=== PATIENT | female | born 1970 | race Caucasian/White ===

== ENCOUNTER 2016-10-01 17:33 | Emergency (ER) | payer MEDICAID ==
[~2016-10-01] VITALS: Ht 157.5 cm; Wt 66.5 kg
[~2016-10-01 17:33] MED LIST: ASPI-781 PO; ATOR10TA65 PO; CLOP75TA27 PO; LANT3I SC; METF500T4 PO
[2016-10-01 17:39] VITALS: Ht 157.5 cm; Wt 66.5 kg
[2016-10-01] MEDS ORDERED: NITROGLYCERIN 2% 1 GM OINT PKT TD STA (17:48)
[2016-10-01] MEDS ORDERED: ASPIRIN 81 MG TAB PO STA (17:48)
[2016-10-01] MEDS ORDERED: NITROGLYCERIN (SL) 0.4 MG TAB SL PRN (18:00)
[2016-10-01 18:07] LABS: BASOPHILS % 0.2 % (0.0-2.0); EOSINOPHILS % 0.3 % (0.0-7.0); HEMATOCRIT 42.4 % (37.0-47.0); HEMOGLOBIN 14.6 g/dl (12.0-16.0); LYMPHOCYTES # 4.3 10^3/ul (0.8-2.9); LYMPHOCYTES % 44.7 % (15.0-51.0); MEAN CORPUSCULAR HEMOGLOBIN 30.6 pg (29.0-33.0); MEAN CORPUSCULAR HGB CONC 34.4 g/dl (32.0-37.0); MEAN CORPUSCULAR VOLUME 88.9 fl (82.0-101.0); MEAN PLATELET VOLUME 11.2 fl (7.4-10.4); MONOCYTE # 0.6 10^3/ul (0.3-0.9); MONOCYTES % 6.5 % (0.0-11.0); NEUTROPHIL # 4.7 10^3/ul (1.6-7.5); NEUTROPHILS % 48.1 % (39.0-77.0); PLATELET COUNT 298 10^3/UL (140-415); RED BLOOD COUNT 4.77 10^6/ul (4.20-5.40); RED CELL DISTRIBUTION WIDTH 11.6 % (11.5-14.5); WHITE BLOOD COUNT 9.7 10^3/ul (4.8-10.8)
[2016-10-01 18:23] LABS: INR 0.9; PARTIAL THROMBOPLASTIN TIME 22.9 Sec (25.0-35.0); PROTIME 12.1 Sec (12.2-14.2); PT RATIO 0.9
[2016-10-01 18:24] LABS: CALCIUM 10.5 mg/dl (8.4-10.2); CREATININE 0.5 mg/dl (0.44-1.00)
[2016-10-01 18:36] LABS: TROPONIN-I 0.013 ng/ml (0.00-0.12)
--- NOTE | 2016-10-01 19:25 | RADRPT ---
PROCEDURE: XR Chest. CLINICAL INDICATION: Chest pain. TECHNIQUE: Anterior chest x-ray. COMPARISON: 07/09/2015 FINDINGS: The lungs are clear. No pleural effusion identified. There is no evidence of pneumothorax. The cardiomediastinal silhouette is unremarkable. The soft tissues are normal. Osseous structures are unremarkable. IMPRESSION: 1. No acute disease is seen in the chest. RPTAT: HLDM .Ankit Carlin MD, MD Date Time Electronically viewed and signed by .Ankit Carlin MD, MD on 10/01/2016 19:25 .M/
[2016-10-01] MEDS ORDERED: INSULIN LISPRO 100 UNIT/ML VIAL SC STA (19:39)
--- NOTE | 2016-10-01 19:53 | ERA ---
ER Documentation Chief Complaint Date/Time DATE: 10/01/16 TIME: 19:51 Chief Complaint PRESSURE LIKE PAIN AT THE LEFT CHEST RADIATES LEFT ARM HPI Patient is a 46-year-old female with coronary artery disease, hypertension, and diabetes who presents with chest pain. She feels a chest pressure that started yesterday in the midsternal area. She has anxiety when the chest pain comes on. It comes and goes. She has had no treatment as of yet. Upon review of old medical records the patient one previous visit to the ER in 2015 and at that time was admitted with an NSTEMI. She does not know the name of her primary doctor. ROS All systems reviewed and are negative except as per history of present illness. Medications Home Meds Active Scripts Metformin Hcl* (Metformin Hcl*) 500 Mg Tablet, 500 MG PO BID, #30 TAB start taking only from 07/13/2015 Prov:GERARDO MITCHELL NP 07/12/15 Clopidogrel Bisulfate (Clopidogrel) 75 Mg Tab, 75 MG PO DAILY for 30 Days, TAB Prov:GERARDO MITCHELL NP 07/12/15 Atorvastatin Calcium (Atorvastatin Calcium) 10 Mg Tab, 40 MG PO HS for 30 Days, TAB Prov:GERARDO MITCHELL NP 07/12/15 Aspirin* (Ecotrin*) 325 Mg Tabec, 325 MG PO DAILY for 30 Days Prov:GERARDO MITCHELL NP 07/12/15 Reported Medications Insulin Glargine* (Lantus*) 100 Unit/Ml Soln, 20 UNIT SC BID, #1 VIAL 07/09/15 Allergies Allergies: Coded Allergies: No Known Allergy (Unverified , 07/09/15) PMhx/Soc Positive for coronary disease, hypertension, and diabetes History of Surgery: No Anesthesia Reaction: No Hx Neurological Disorder: No Hx Respiratory Disorders: No Hx Cardiac Disorders: No Hx Psychiatric Problems: No Hx Miscellaneous Medical Probl: No Hx Alcohol Use: No Hx Substance Use: No Hx Tobacco Use: No Smoking Status: Never smoker FmHx Family History: No coronary disease Physical Exam Vitals Vital Signs Date Time Temp Pulse Resp B/P Pulse Ox O2 Delivery O2 Flow Rate FiO2 10/01/16 17:50 Nasal Cannula 2 10/01/16 17:39 98.4 85 19 136/81 99 Physical Exam Const: [] Head: Atraumatic Eyes: Normal Conjunctiva ENT: Normal External Ears, Nose and Mouth. Neck: Full range of motion..~ No meningismus. Resp: Clear to auscultation bilaterally Cardio: Regular rate and rhythm, no murmurs Abd: Soft, non tender, non distended. Normal bowel sounds Skin: No petechiae or rashes Back: No midline or flank tenderness Ext: No cyanosis, or edema Neur: Awake and alert Psych: Normal Mood and Affect Result Diagram: 10/01/160 10/01/16 175 Results 24 hrs Laboratory Tests Test 10/01/16 17:50 White Blood Count 9.710^3/ul Red Blood Count 4.7710^6/ul Hemoglobin 14.6g/dl Hematocrit 42.4% Mean Corpuscular Volume 88.9fl Mean Corpuscular Hemoglobin 30.6pg Mean Corpuscular Hemoglobin Concent 34.4g/dl Red Cell Distribution Width 11.6% Platelet Count 63389^3/UL Mean Platelet Volume 11.2fl Neutrophils % 48.1% Lymphocytes % 44.7% Monocytes % 6.5% Eosinophils % 0.3% Basophils % 0.2% Nucleated Red Blood Cells % 0.0/100WBC Neutrophils # 4.710^3/ul Lymphocytes # 4.310^3/ul Monocytes # 0.610^3/ul Eosinophils # 0.010^3/ul Basophils # 0.010^3/ul Nucleated Red Blood Cells # 0.010^3/ul Prothrombin Time 12.1Sec Prothrombin Time Ratio 0.9 INR International Normalized Ratio 0.90 Activated Partial Thromboplast Time 22.9Sec Sodium Level 140mmol/L Potassium Level 4.0mmol/L Chloride Level 99mmol/L Carbon Dioxide Level 22mmol/L Anion Gap 23 Blood Urea Nitrogen 13mg/dl Creatinine 0.50mg/dl Glucose Level 495mg/dl Calcium Level 10.5mg/dl Troponin I 0.013ng/ml Current Medications Medications (Trade) Dose Ordered Sig/Helen Route PRN Reason Start Time Stop Time Status Last Admin Dose Admin Aspirin (Aspirin) 162 mg ONCE STAT PO 10/01/16 17:48 10/01/16 17:49 DC 10/01/16 18:18 Nitroglycerin (Nitroglycerin 2% Oint) 1 inch ONCE STAT TD 10/01/16 17:48 10/01/16 17:49 DC 10/01/16 18:18 Nitroglycerin (Nitroglycerin (Sl Tab) 0.4 Mg) 1 tab Q5M UP TO 3 DOSES PRN SL CHEST PAIN 10/01/16 18:00 Insulin Human Lispro (Humalog) 10 unit ONCE STAT SC 10/01/16 19:39 10/01/16 19:44 DC Ondansetron HCl (Zofran Inj) 4 mg ER BRIDGE PRN IV NAUSEA AND/OR VOMITING 10/01/16 20:00 10/02/16 19:59 Acetaminophen (Tylenol Tab) 650 mg ER BRIDGE PRN PO MILD PAIN/FEVER 10/01/16 20:00 10/02/16 19:59 Procedures/MDM EKG #1 read by me: Rate/Rhythm: Regular rate and rhythm at a rate of 79 Intervals: Normal Impression: No evidence of ischemia or arrhythmia EKG #2 is pending at this time. Chest x-ray negative per radiology. Patient is a 46-year-old female with multiple cardiac risk factors who presents with chest pain. She had an NSTEMI one year ago and her symptoms are similar and I am concerned for acute coronary syndrome. At this point I doubt pneumonia , pneumothorax, pulmonary embolism, or aortic dissection. The patient will be admitted to the care of Dr. Baumann from the panel team as she was previously admitted to the panel team. She will be admitted to a telemetry bed. Departure Diagnosis: Primary Impression: Chest pain Qualified Code: R07.9 - Chest pain, unspecified type Additional Impression: Hyperglycemia Condition: ABBEY Aguero MD Oct 01, 2016 19:53
[2016-10-01] MEDS ORDERED: ONDANSETRON 4 MG INJ IV PRN (20:00)
[2016-10-01] MEDS ORDERED: ACETAMINOPHEN 325 MG TAB PO PRN (20:00)
[2016-10-01 21:00] VITALS: BP 108/78; PULSE 89; RESP 18; TEMP 98.8
== END 2016-10-01 21:02 | disposition left against medical advice (07) ==
LOC: E/R 17:33
DX: R07.9 Chest pain, unspecified (principal); E11.65 Type 2 diabetes mellitus with hyperglycemia; I10 Essential (primary) hypertension; I25.10 Atherosclerotic heart disease of native coronary artery without angina pectoris; Z79.82 Long term (current) use of aspirin; Z79.4 Long term (current) use of insulin; Z79.84 Long term (current) use of oral hypoglycemic drugs
CPT/HCPCS: 36415; 71010; 80048; 82962; 84484; 85025; 85610; 85730; 93005; 96372; J1815; Z7502; Z7610

== ENCOUNTER 2017-10-11 09:29 | Emergency (ER) | END 2017-10-11 17:09 | disposition EXP ==